=== PATIENT | female | born 1970 | race Caucasian/White ===

== ENCOUNTER 2020-12-05 06:53 | Outpatient (NON) | payer BC, SELFPAY ==
[2020-12-05 18:47] LABS: SARS-CoV-2 RNA PCR Positive
== END 2020-12-05 06:54 ==
PROVIDERS: PCP Family Medicine Adolescent Medicine; Visit Provider Family Medicine Adolescent Medicine
DX: U07.1 COVID-19 (principal)
CPT/HCPCS: C9803; U0003; U0005

== ENCOUNTER 2023-02-07 09:15 | Outpatient (CLI) | payer BC, SELFPAY ==
--- NOTE | ~2023-02-07 | MMUS_ITS ---
MM post biopsy invasive LT, US breast biopsy LT w image EXAMINATION: US GUIDED NEEDLE BIOPSY WITH VACUUM ASSISTANCE DATE: 02/07/2023 10:52 CDT INDICATION: Left breast mass seen on outside examination. Ultrasound-guided core biopsy is requested to evaluate for malignancy. TECHNIQUE AND FINDINGS: The risks and potential benefits of the procedure were discussed with the patient, and written inform ed consent was obtained. After sterile preparation of the breast, 1% lidocaine was utilized for loca l anesthesia. 1% lidocaine with epinephrine was used for deep anesthesia. Initial images demonstrate the mass of interest at 3:00, 11 cm from the nipple measuring 2.6 x 2 x 2.5 cm. There is a second ov al circumscribed hypoechoic mass with low level internal echoes at 4:00, 6 cm from the nipple with po sterior shadowing and no internal vascularity. This is likely benign. Six-month follow-up of this mas s recommended. A 10G vacuum-assisted biopsy gun needle was advanced through to the outer edge of the region of inter est from a superior lateral approach utilizing sonographic guidance. A total of 5 tissue core sample s were obtained through the lesion. An Inrad tissue marker clip was then placed at the biopsy site. Hemostasis was achieved. The patient tolerated procedure well and there was no evidence of immediate complication. The patien t was given verbal instructions partly is from the department. Left breast mammograms to document ti ssue marker clip placement. The tissue samples were submitted to surgical pathology for histologic an alysis. IMPRESSION: 1. Successful ultrasound-guided vacuum-assisted biopsy of left breast mass with tissue marker placem ent. Please refer to pathology report for histologic analysis. 2: Second mass located at 4:00, 6 cm from the nipple is likely benign. Six-month follow-up left red st ultrasound recommended. BI-RADS Category 3. Reviewed, dictated and finalized at location A. IMPRESSION: 1. Successful ultrasound-guided vacuum-assisted biopsy of left breast mass wit h tissue marker placement. Please refer to pathology report for histologic anal ysis. 2: Second mass located at 4:00, 6 cm from the nipple is likely benign. Six-mon th follow-up left breast ultrasound recommended. BI-RADS Category 3.
== END 2023-02-07 09:16 | disposition home or self-care (01) ==
PROVIDERS: PCP Family Medicine Adolescent Medicine; Visit Provider Family Medicine Adolescent Medicine
DX: N63.20 Unspecified lump in the left breast, unspecified quadrant (principal); D05.12 Intraductal carcinoma in situ of left breast
CPT/HCPCS: 19083; 88305; 88360; 88365; A4648